=== PATIENT | female | born 1950 | race Caucasian/White ===

== ENCOUNTER 2020-09-01 09:10 | Emergency (ER) | payer BC, OTHER ==
--- NOTE | 2020-09-01 09:12 | ED Physician Documentation ---
PD HPI HEAD INJURY - Stated complaint Stated Complaint: GLF, HIT HEAD - History obtained from History obtained from: Patient - History of Present Illness Mechanism of head injury: Fell (she states she slipped on bottom step going down stairs and fell forward, striking forehead with large swelling on forehead with brusining. No LOC and no altered mentation. Concerned about degree of swelling and now bruising showing.) Where head injury occurred: Home Timing - onset: How many hours ago (2-3) Location of injury: Left, Front (forehead and periorbital.) Quality of pain: Throbbing, Aching Associated symptoms: No: LOC, AMS, Amnesia, Nausea / vomiting Symptoms worsen with: Palpation Contributing factors: No: Anticoagulated, Intoxicated Similar symptoms before: Has not had sx before Review of Systems Constitutional: denies: Fever Eyes: denies: Loss of vision, Decreased vision Nose: denies: Rhinorrhea / runny nose, Congestion Throat: denies: Sore throat Cardiac: denies: Chest pain / pressure Respiratory: denies: Cough GI: denies: Abdominal Pain Skin: reports: Abrasion (s) (cheek and forehead, minimal.) Musculoskeletal: denies: Extremity pain Neurologic: denies: Altered mental status PD PAST MEDICAL HISTORY - Past Medical History Cardiovascular: None Respiratory: None Neuro: None Endocrine/Autoimmune: None - Present Medications Home Medications: Ambulatory Orders Medication Instructions Recorded Confirmed No Known Home Medications 09/01/20 09/01/20 - Allergies Allergies/Adverse Reactions: Allergies Allergy/AdvReac Type Severity Reaction Status Date / Time No Known Drug Allergies Allergy Verified 09/01/20 09:23 PD ED PE NORMAL - Vitals Vital signs reviewed: Yes - General General: Alert and oriented X 3, No acute distress, Well developed/nourished - HEENT HEENT: PERRL, EOMI, Pharynx benign, Other (large hematoma with local swelling and tenderness forehead left side, with some ecchymosis around the eye, including upper/lower lids. ) - Neck Neck: Supple, no meningeal sign, No bony TTP (but has some tenderness lateral muscles lower neck. ), No adenopathy - Cardiac Cardiac: RRR, No murmur - Respiratory Respiratory: Clear bilaterally, Other (no chestwall tenderness) - Abdomen Abdomen: Soft, Non tender - Derm Derm: Normal color, Warm and dry - Extremities Extremities: No tenderness to palpate, Normal ROM s pain - Neuro Neuro: Alert and oriented X 3, No motor deficit, Normal speech Eye Opening: Spontaneous Motor: Obeys Commands Verbal: Oriented GCS Score: 15 Results - Vitals Vitals: Vital Signs - 24 hr 09/01/20 09/01/20 09:14 10:52 Temperature 36.4 C L Heart Rate 72 70 Respiratory 16 16 Rate Blood Pressure 118/67 146/79 H O2 Saturation 99 Oxygen O2 Source Room air - Rads (name of study) head CT Radiology: Prelim report reviewed, See rad report (no ICH. Soft tissue swelling noted. ) cervical CT Radiology: Prelim report reviewed (no acute fractures. ), See rad report PD MEDICAL DECISION MAKING - ED course Complexity details: reviewed results, considered differential, d/w patient Departure - Departure Disposition: 01 Home, Self Care Clinical Impression: Fall down stairs Qualifiers: Encounter type: initial encounter Qualified Code(s): W10.8XXA - Fall (on) (from) other stairs and steps, initial encounter Traumatic hematoma of forehead Qualifiers: Encounter type: initial encounter Qualified Code(s): S00.83XA - Contusion of other part of head, initial encounter Condition: Stable Record reviewed to determine appropriate education?: Yes Instructions: ED Hematoma Follow-Up: Loraine Hart MD [Primary Care Provider] - Comments: Consider anti-inflammatory such as ibuprofen 600 mg 3 times a day with food. To that add Tylenol 650 mg 4 times a day as needed for pain. Ice and cool towels to the area of swelling periodically. I would anticipate improvement over the next couple of days regarding the pain and pressure of it but it may take a week or 2 for the hematoma to fully resorb. Discharge Date/Time: 09/01/20 10:53
--- NOTE | 2020-09-01 10:13 | CT Report ---
PROCEDURE: HEAD WO INDICATIONS: fall last night; swelling left forehead/ headache TECHNIQUE: Noncontrast 4.5 mm thick angled axial sections acquired from the foramen magnum to the vertex. For r adiation dose reduction, the following was used: automated exposure control, adjustment of mA and/or kV according to patient size. COMPARISON: None. FINDINGS: Image quality: Excellent. CSF spaces: Basal cisterns are patent. No extra-axial fluid collections. Ventricles are normal in size and shape. Brain: There is no acute intracranial hemorrhage, evidence of intracranial edema, mass effect, or mid line shift. Normal burgos-white matter differentiation. Skull and face: There is a hyperdense scalp hematoma in the left anterior frontal region overlying th e forehead and left orbit. Remaining scalp unremarkable. Osseous structures intact. Sinuses: Visualized sinuses and mastoids are clear. IMPRESSION: Prominent left frontal scalp hematoma without acute intracranial finding. Reviewed by: Glen Marmolejo MD on 09/01/2020 10:12 AM PDT Approved by: Glen Marmolejo MD on 09/01/2020 10:12 AM PDT Station ID: [id number]
--- NOTE | 2020-09-01 10:15 | CT Report ---
PROCEDURE: CERVICAL SPINE WO INDICATIONS: fall on stairs last night/ left forehead swelling TECHNIQUE: Noncontrast 3 mm thick sections acquired from the skull base to the T4 level. Sagittal and coronal r eformats were then constructed. For radiation dose reduction, the following was used: automated exp osure control, adjustment of mA and/or kV according to patient size. COMPARISON: None. FINDINGS: Image quality: Excellent. Bones: No fractures or dislocations. Visualized superior ribs are intact. Degenerative changes in t he mid cervical spine. Straightening of the usual cervical lordosis is likely degenerative. There is no listhesis. Vertebral body heights maintained. Normal configuration of the craniocervical junction. No evidence of facet subluxation or dislocation. Soft tissues: Prevertebral soft tissues are normal in thickness. No paravertebral hematomas. No ap ical pneumothoraces. IMPRESSION: No CT evidence of acute or metastatic cervical spine injury. Reviewed by: Glen Marmolejo MD on 09/01/2020 10:13 AM PDT Approved by: Glen Marmolejo MD on 09/01/2020 10:13 AM PDT Station ID: [id number]
[2020-09-01 10:53] VITALS: BP 146/79
== END 2020-09-01 10:53 | disposition home or self-care (01) ==
LOC: ED 09:10
DX: S00.83XA Contusion of other part of head, initial encounter (principal); S00.03XA Contusion of scalp, initial encounter; W10.9XXA Fall (on) (from) unspecified stairs and steps, initial encounter
CPT/HCPCS: 70450; 72125; 99282; 99284